=== PATIENT | male | born 1975 | race Caucasian/White ===

== ENCOUNTER 2017-11-17 01:15 | Inpatient (IN) | payer OTHER ==
[~2017-11-17] VITALS: Ht 177.8 cm; Wt 171.5 kg
[~2017-11-17 01:15] MED LIST: ACTIGALL300 MG PO; ALLEGRA ALLERG180 MG PO; AMLODIPINE BESY10 MG PO; ANTI HYPERTENSIVE; CLARITIN10 MG PO; COZAAR 50 MG TA50 M2 PO; FENOFIBRATE PO; FISH OIL 1,001000 M2 PO; FLEXERIL PO; FLONASE 0.05%50 MCG NASAL; HYDROCHLOROTH12.5 M1 PO; HYDROCODON-ACE1 EAC8 PO; HYDROCODONE-APA1 TA1 PO; ICY HOT1 EAC1 TOP; LASIX 40 MG TAB40 M2 PO; LEVAQUIN 500 M500 M2 PO; LISINOPRIL20 MG PO; MELOXICAM15 MG PO; NEURONTIN 300300 M1 PO; NORVASC10 MG PO; PERCOCET 10-321 EACH PO; SYMBICORT160 MCG/4. INH; TRAMADOL 50 MG50 MG PO; TYLENOL325 MG PO; URSODIOL250 MG PO; ZESTORETIC 20-1 EAC3 PO; ZOCOR20 MG PO
[2017-11-17 01:20] VITALS: BP 164/87
[2017-11-17] MEDS ORDERED: CARVEDILOL12.5 MG PO (01:33)
[2017-11-17] MEDS ORDERED: AMITRIPTYLINE H25 M2 PO (01:33)
[2017-11-17] MEDS ORDERED: CLONIDINE0.1 PO (01:34)
[2017-11-17] MEDS ORDERED: CHOLESTYRAMINE P4 GM PO (01:34)
[2017-11-17] MEDS ORDERED: NOVOLOG100 UNIT/1 SUBQ (01:35)
[2017-11-17] MEDS ORDERED: LISINOPRIL-HCT1 EAC1 PO (01:35)
[2017-11-17] MEDS ORDERED: CLARITIN10 MG PO (01:35)
[2017-11-17] MEDS ORDERED: LANTUS SUBQ (01:35)
[2017-11-17] MEDS ORDERED: OXYCODONE HCL 55 MG PO (01:36)
[2017-11-17] MEDS ORDERED: CREON DR 36,001 EACH PO (01:40)
[2017-11-17] MEDS ORDERED: TOPAMAX 100 MG100 MG PO (01:40)
[2017-11-17] MEDS ORDERED: TRAZODONE HCL50 MG PO (01:40)
[2017-11-17 01:51] LABS: HEMATOCRIT 46.2 % (42.0-52.0); HEMOGLOBIN 15.5 gm/dL (14.0-18.0); MCH 30.9 pg (26.0-34.0); MCHC 33.6 g/dL (28.0-37.0); MCV 91.8 fL (80.0-100.0); MPV 7.8 fl. (7.2-11.1); NUCLEATED RBCS 0 /100WBC; PLATELET COUNT* 213 thou/uL (150-400); RBC 5.03 mil/uL (4.50-6.00); RDW-CV 15.1 % (10.5-14.5); WBC 6.2 thou/uL (4.0-11.0)
[2017-11-17 02:20] LABS: ABSOLUTE LYMPHOCYTES 0.4 thou/uL (0.8-5.3); ABSOLUTE MONOCYTES 0.6 thou/uL (0.0-1.2); ABSOLUTE NEUTROPHILS 5.3 thou/uL (1.6-8.1)
[2017-11-17 02:21] LABS: ANISOCYTOSIS Occasional; PLATELET ESTIMATE ADEQUATE
[2017-11-17 02:27] LABS: ANION GAP 14 mmol/L (7-16); BUN 19 mg/dL (7-18); CALCIUM 10.6 mg/dL (8.5-10.1); CHLORIDE 93 mmol/L (98-107); CO2 26 mmol/L (21-32); CREATININE 1.3 mg/dL (0.6-1.3); GLUCOSE 205 mg/dL (70-99); POTASSIUM 3.5 mmol/L (3.5-5.1); SODIUM 133 mmol/L (136-145)
[2017-11-17 02:37] LABS: ALBUMIN 4.1 g/dL (3.4-5.0); ALKALINE PHOSPHATASE 159 U/L (46-116); LIPASE 841 U/L (73-393); NT-PRO BRAIN NAT PEPTIDE 32 pg/mL (<300); SGOT 1093 U/L (15-37); SGPT 1088 U/L (30-65); TOTAL BILIRUBIN 4.7 mg/dL (<0.1-1.0); TOTAL PROTEIN 7.3 g/dL (6.4-8.2); TROPONIN-I LEVEL <0.06 ng/mL (<0.06)
[2017-11-17 04:55] VITALS: BP 153/86
[2017-11-17 05:55] VITALS: BP 143/84
[2017-11-17 09:30] VITALS: BP 143/75
[2017-11-17 16:00] VITALS: BP 140/73
--- NOTE | 2017-11-17 17:06 | EKG ---
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 : 1975 Requested By: Kaity Mccain Order Number: [id number] MD: Carlos Alberto Ward Measurements Intervals [place] Rate: 101 P: 31 MD: 143 QRS: 46 QRSD: 117 T: 13 QT: 354 QTc: 459 Interpretive Statements Sinus tachycardia Probable left atrial enlargement Incomplete right bundle branch block Compared to ECG 06/17/2015 13:43:33 Incomplete right bundle-branch block now present Sinus rhythm no longer present Electronically Signed On 11-17-2017 17:06:36 FIRST MATE by Carlos Alberto Ward [email or web address] <ELECTRONICALLY SIGNED> By: Carlos Alberto Ward MD, [facility] 11/17/17 1706 0121 0121 Carlos Alberto Ward MD, [facility] /EPI
[2017-11-17 20:00] VITALS: BP 146/80
[2017-11-18 05:24] LABS: HEMATOCRIT 42.5 % (42.0-52.0); MCH 30.9 pg (26.0-34.0); MCV 93.7 fL (80.0-100.0); MPV 7.8 fl. (7.2-11.1); RBC 4.53 mil/uL (4.50-6.00); RDW-CV 15.8 % (10.5-14.5); WBC 4.6 thou/uL (4.0-11.0)
[2017-11-18 06:30] LABS: ALBUMIN 3.3 g/dL (3.4-5.0); ALKALINE PHOSPHATASE 277 U/L (46-116); ANION GAP 12 mmol/L (7-16); BUN 18 mg/dL (7-18); CHLORIDE 100 mmol/L (98-107); CHOLESTEROL 290 mg/dL (<200); CO2 25 mmol/L (21-32); CREATININE 1.1 mg/dL (0.6-1.3); GLUCOSE 235 mg/dL (70-99); HDL CHOLESTEROL 9 mg/dL (>40); POTASSIUM 4.4 mmol/L (3.5-5.1); SGOT 998 U/L (15-37); SGPT 1603 U/L (30-65); SODIUM 137 mmol/L (136-145); TC:HDL 32.2 Ratio (Not establshd); TOTAL BILIRUBIN 5.8 mg/dL (<0.1-1.0); TOTAL PROTEIN 5.7 g/dL (6.4-8.2); TRIGLYCERIDE 714 mg/dL (<150); VLDL 143 mg/dL (<40)
[2017-11-18 06:31] LABS: LDL CHOLESTEROL ND mg/dL (<100); SERUM ASSESSMENT Clear
[2017-11-18 09:00] VITALS: BP 138/86
[2017-11-18 15:56] VITALS: BP 111/62
[2017-11-18 16:31] VITALS: BP 111/62
[2017-11-18 16:34] VITALS: BP 111/62
[2017-11-18 17:18] LABS: INR 1.2
[2017-11-18 20:45] VITALS: BP 118/70
[2017-11-19 04:17] VITALS: BP 120/70
[2017-11-19 04:17] LABS: HEMATOCRIT 38.3 % (42.0-52.0); HEMOGLOBIN 12.8 gm/dL (14.0-18.0); MCH 31.2 pg (26.0-34.0); MCHC 33.5 g/dL (28.0-37.0); MCV 93.1 fL (80.0-100.0); MPV 7.9 fl. (7.2-11.1); RBC 4.11 mil/uL (4.50-6.00); WBC 4.3 thou/uL (4.0-11.0)
[2017-11-19 04:48] LABS: ALBUMIN 2.6 g/dL (3.4-5.0); CALCIUM 8.2 mg/dL (8.5-10.1); POTASSIUM 3.9 mmol/L (3.5-5.1); TOTAL BILIRUBIN 1.4 mg/dL (<0.1-1.0); TOTAL PROTEIN 5.9 g/dL (6.4-8.2)
[2017-11-19 08:31] VITALS: BP 129/57
[2017-11-19 15:35] VITALS: BP 117/76
[2017-11-20 00:31] VITALS: BP 119/50
[2017-11-20 06:27] LABS: HEMATOCRIT 37.3 % (42.0-52.0); HEMOGLOBIN 12.2 gm/dL (14.0-18.0); MCH 31.3 pg (26.0-34.0); MCHC 32.7 g/dL (28.0-37.0); MCV 95.5 fL (80.0-100.0); MPV 7.9 fl. (7.2-11.1); RBC 3.91 mil/uL (4.50-6.00); RDW-CV 16.4 % (10.5-14.5); WBC 4.2 thou/uL (4.0-11.0)
[2017-11-20 06:38] LABS: ALBUMIN 2.6 g/dL (3.4-5.0); CALCIUM 7.8 mg/dL (8.5-10.1); CREATININE 0.8 mg/dL (0.6-1.3); POTASSIUM 3.6 mmol/L (3.5-5.1); TOTAL BILIRUBIN 0.8 mg/dL (<0.1-1.0); TOTAL PROTEIN 5.9 g/dL (6.4-8.2)
[2017-11-20 08:30] VITALS: BP 136/64
[2017-11-20 17:05] VITALS: BP 135/80
[2017-11-20 20:00] VITALS: BP 118/61
[2017-11-21 04:53] LABS: ALBUMIN 2.8 g/dL (3.4-5.0); CALCIUM 8.1 mg/dL (8.5-10.1); CREATININE 0.8 mg/dL (0.6-1.3); POTASSIUM 3.6 mmol/L (3.5-5.1); TOTAL BILIRUBIN 0.8 mg/dL (<0.1-1.0); TOTAL PROTEIN 6.3 g/dL (6.4-8.2)
[2017-11-21 08:08] VITALS: BP 152/90
--- NOTE | 2017-11-27 14:50 | CON ---
[address] [address] CONSULTATION Name: STACEYKAVITHA ELGIN Room: [address] IN M.R.#: [id number] Admission: 11/17/17 Attend Phys: Venkatesh Mejia MD Discharge: 11/21/17 Date of : 77 Report #: [id number] THIS REPORT FOR: //name// CC: [facility] physician/PCP Venkatesh Mejia DATE OF SERVICE: 11/17/2017 ADDENDUM This is a 42-year-old male with history of gallbladder disease, status post cholecystectomy in 2016, who also had an endoscopic ultrasound 3 months ago for abdominal pain. He presents with evidence of pancreatitis and his bilirubin is 4.6. His transaminases also are elevated. He denies any gastroesophageal reflux symptoms. He has had endoscopic evaluation 3 years ago back at . He also reports that his last bowel movement was yesterday and denies any hematochezia, melena. We will go ahead and follow up his labs and also order MRCP. We will request EUS report from the outside facility. We will make further recommendation once we review these results. <ELECTRONICALLY SIGNED> By: Alycia Gutierres MD 11/27/17 1450 1641 1705Alycia Gutierres MD /nt
--- NOTE | 2017-11-27 14:50 | CON ---
[address] [address] CONSULTATION Name: STACEYKAIVTHA Room: [address] IN M.R.#: [id number] Admission: 11/17/17 Attend Phys: Venkatesh Mejia MD Discharge: 11/21/17 Date of : 77 Report #: [id number] THIS REPORT FOR: //name// CC: [facility] physician/PCP Venkatesh Mejia DICTATED BY: Mell Cha [facility] DATE OF SERVICE: 11/17/2017 The patient does not have a PCP. Please note at the time of this dictation, the patient was seen and physically examined by myself. REASON FOR CONSULTATION: Chronic pancreatitis. HISTORY OF PRESENT ILLNESS: This is a 42-year-old male who presented to the ER with having 2 days of shortness of breath, abdominal pain and some chest discomfort. The patient is rating his pain as 10/10 most of the time, it is mid epigastric, sharp and radiates out bilaterally around to sides in intensity. He has difficulty carrying on a conversation secondary to the pain. He denies any reflux, GERD or any NSAID use at this time. The patient has been followed by [facility], particularly Dr. Anand who he states he recently saw not very long ago. He has had upper and lower endoscopy studies with them as well as having upper and lower endoscopy studies done at . We will need to obtain his records from and [facility] for further evaluation as to where he is going. 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 ALLERGIES: CONTRAST DYE, IBUPROFEN, SHELLFISH, AND NAPROXEN. MEDICATIONS: From home include amitriptyline, Coreg, cholestyramine, clonidine, NovoLog, Lantus, Claritin, lisinopril with HCTZ, oxycodone, Creon, trazodone, simvastatin, Symbicort, fenofibrate, gabapentin, amlodipine, tramadol, ursodiol, Flonase and Topamax. PAST MEDICAL HISTORY: Hypertension, chronic pancreatitis and hyperlipidemia. PAST SURGICAL HISTORY: Cholecystectomy, back in 2015. FAMILY HISTORY: Negative for any GI or female cancers. SOCIAL HISTORY: Denies any alcohol, tobacco or illegal drug use [place] [address] CONSULTATION Name: KAVITHA IBARRA Room: [address]#: [id number] Admission: 11/17/17 Attend Phys: Venkatesh Mejia MD Discharge: 11/21/17 Date of : 77 Report #: [id number] REVIEW OF SYSTEMS: Twelve-point review of systems is essentially negative except what is mentioned in the HPI. PHYSICAL EXAMINATION: VITAL SIGNS: Temperature 36.6, pulse 96, respirations 24, blood pressure 143/72. HEART: Regular rate and rhythm. LUNGS: Clear. ABDOMEN: Positive bowel sounds, distended, morbidly obese with diffuse tenderness especially in the upper quadrants noted. LABORATORY DATA: White count is 6.2, hemoglobin is 15.5, hematocrit 46.5, platelets is 213. Sodium 133, potassium 3.5, chloride 93, CO2 26, BUN is 19, creatinine 1.3, GFR 61, and glucose is 205. Lipase was 841. CT showed stranding present around the pancreas with mild thickening of the distal stomach and proximal duodenum, diffuse fatty liver. IMPRESSION: 1. Vhlos-eo-jcumrha pancreatitis. 2. Abdominal pain. 3. Nausea and vomiting. 4. Elevated LFTs. 5. History of elevated IgG4 back in 2014. PLAN: 1. Increase fluids to 250. 2. We will check lipids and repeat CMP, CBC in a.m. 3. We will obtain records from and [facility]. 4. Ultrasound to further evaluate his liver and increased LFTs, may need to consider MRCP. 5. Further recommendations to be made once the above have been noted. Thank you for allowing us to participate in this patient's care. Please do not hesitate to call with any questions in regard to this consult. <ELECTRONICALLY SIGNED> By: Alycia Gutierres MD 11/27/17 1450 1255 [id number] Gutierres MD /nt
[2018-07-30] MEDS ORDERED: BASAGLAR K100 UNIT/1 (13:41)
[2018-07-30] MEDS ORDERED: FLEXERIL PO (13:41)
[2018-07-30] MEDS ORDERED: CEFDINIR300 MG PO (13:42)
[2018-07-30] MEDS ORDERED: DEPAKOTE ER500 MG PO (13:43)
[2018-07-30] MEDS ORDERED: PREVALITE PACKET4 GM PO (13:43)
[2018-07-30] MEDS ORDERED: FISH OIL 1,001000 M2 PO (13:43)
[2018-07-30] MEDS ORDERED: IMITREX100 MG PO (13:44)
== END 2017-11-21 16:38 | disposition left against medical advice (07) | DRG 441 ==
LOC: M.ERS 01:15 → M.TBA-ER 02:46 → M.ORTHSURG 02:46
PROVIDERS: Emergency Medicine; Internal Medicine Gastroenterology; Nurse Practitioner Adult Health; ADMIT Internal Medicine
DX: B17.9 Acute viral hepatitis, unspecified (principal); K85.90 Acute pancreatitis without necrosis or infection, unspecified; J96.00 Acute respiratory failure, unspecified whether with hypoxia or hypercapnia; K90.9 Intestinal malabsorption, unspecified; Z68.43 Body mass index [BMI] 50.0-59.9, adult; K86.1 Other chronic pancreatitis; E66.01 Morbid (severe) obesity due to excess calories; E11.65 Type 2 diabetes mellitus with hyperglycemia; R16.2 Hepatomegaly with splenomegaly, not elsewhere classified; K22.70 Barrett's esophagus without dysplasia; K29.00 Acute gastritis without bleeding; K73.9 Chronic hepatitis, unspecified; K76.0 Fatty (change of) liver, not elsewhere classified; Z53.21 Procedure and treatment not carried out due to patient leaving prior to being seen by health care provider; J45.909 Unspecified asthma, uncomplicated; I10 Essential (primary) hypertension; R79.89 Other specified abnormal findings of blood chemistry; R74.0 Nonspecific elevation of levels of transaminase and lactic acid dehydrogenase [LDH]; E78.5 Hyperlipidemia, unspecified; Z91.81 History of falling; Z86.73 Personal history of transient ischemic attack (TIA), and cerebral infarction without residual deficits; Z79.899 Other long term (current) drug therapy; Z79.4 Long term (current) use of insulin; Z90.49 Acquired absence of other specified parts of digestive tract; Z88.8 Allergy status to other drugs, medicaments and biological substances; Z91.013 Allergy to seafood

== ENCOUNTER → 2018-07-30 | Outpatient (CLI) | payer OTHER ==
[~2018-07-30] MED LIST changes: +AMITRIPTYLINE H25 M2 PO; +BASAGLAR K100 UNIT/1; +CARVEDILOL12.5 MG PO; +CEFDINIR300 MG PO; +CHOLESTYRAMINE P4 GM PO; +CLONIDINE0.1 PO; +CREON DR 36,001 EACH PO; +DEPAKOTE ER500 MG PO; +IMITREX100 MG PO; +LANTUS SUBQ; +LISINOPRIL-HCT1 EAC1 PO; +NOVOLOG100 UNIT/1 SUBQ; +OXYCODONE HCL 55 MG PO; +PREVALITE PACKET4 GM PO; +TOPAMAX 100 MG100 MG PO; +TRAZODONE HCL50 MG PO
--- NOTE | ~2018-07-30 | PAINCON ---
[address] [address] PAIN MANAGEMENT CONSULTATION Name: KAVITHA IBARRA Room: [facility] AneeshZahida#: [id number] Admission: 07/30/18 Attend Phys: Kami Cedillo MD Discharge: Date of : 77 Report #: [id number] THIS REPORT FOR: //name// CC: Bailee Cedillo DATE OF SERVICE: 07/30/2018 CHIEF COMPLAINT: Bilateral hip pain. HISTORY: The patient is a 43-year-old gentleman who has been followed in the past because of low back pain. States that his pain has been problematic for a number of years. He is experiencing sharp shooting pains into his hips. States that sometimes this perception of pain caused him to use of his left leg. Pain is worse depends on the time of day it differs. The patient feels that the pain is always there and chronic. Describes it is continuous chronic burning, shooting, cramping, aching, throbbing, sharp, stabbing, tender, transient and it is intermittent. Rates it as a 7/10. He has seen a chiropractor in the past. The patient was seen by pain management associates. The patient states that he lives close to [facility] and would like to have treatment in this area. Notes that his pain has worsened over the last 4-5 years. He has fallen from time to time. ALLERGIES: CONTRAST DYE, IBUPROFEN. MEDICATIONS: Amitriptyline 50 mg daily, Coreg 12.5 mg b.i.d., cholestyramine 4 g daily, clonidine 0.1 mg b.i.d., insulin, Lantus insulin 100 units, Claritin 10 mg, lisinopril/hydrochlorothiazide 20/12.5, oxycodone IR 5 mg q.4-6 hours p.r.n., Creon DR 36,000 unit capsules, trazodone 50 mg at bedtime, Zocor 20 mg, Symbicort 160/4.5 two puffs b.i.d., fenofibrate 134 mg daily, Tramadol 50 mg b.i.d., ursodiol 500 mg p.o. t.i.d., Flonase 0.05% nasal spray 2 sprays daily, Topamax 100 mg. DISCONTINUED MEDICATIONS: Fish oil 1000 mg, Icy Hot, [place] 7.5/325, Tylenol 325. PAST MEDICAL HISTORY: Non-alcoholic chronic pancreatitis, abdominal pain, hyperkalemia, seasonal allergies, CVA 12/2013. The patient states that he has had 4 CVAs, two major and two minor strokes, left-sided weakness, history of falls, low back pain, hypertension, HLD. PAST SURGICAL HISTORY: Cholecystectomy, pancreas issues, left knee surgery. 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 REVIEW OF SYSTEMS: Recent weight change, fatigue, weakness, headaches, double [facility] [address] [place] [address] PAIN MANAGEMENT CONSULTATION Name: IBARRAKAVITHA Room: [facility]#: [id number] Admission: 07/30/18 Attend Phys: Kami Cedillo MD Discharge: Date of : 77 Report #: [id number] vision/blurred vision, earaches, chronic sinus problems, nosebleeds, mouth, sore throat, swollen glands, shortness of breath lying flat, swelling of feet, ankles, hands. Chronic frequent coughs spitting up blood, shortness of breath, wheezing, change in bowel movements, nausea, frequent diarrhea, painful bowel movement, rectal bleeding, kidney stones, joint pain, joint stiffness, weakness, muscle pain, cramping, back pain, frequent recurrent headaches, numbness and tingling, stroke, memory loss, confusion, insomnia, slow to heal cutting, bruising tendency. LABORATORY DATA: No new laboratory values are available at the time of our interview. PAIN CLINIC ASSESSMENT/PQRS: 1. History of osteoarthritis. The patient complains of some arthritic pain in his low back area. 2. The patient has not been treated for rheumatoid arthritis. 3. Height 5 feet 10 inches, weight 370 pounds, BMI is 53.3. 4. Vital signs: Blood pressure 148/101, heart rate 77, respiratory rate 16, room air saturation 96%. Temperature 98.5. Pain intensity 7/10. 5. Fall risk. The patient states he has fallen on numerous occasions. 6. Blood thinner. The patient is not on a blood thinning medication. 7. Hypertension. The patient is being treated for hypertension. 8. Opioid greater than 6 weeks. The patient does receive opioid medications. 9. Risk assessment tool. 10. Functional assessment tool 70/70 for pain impact score. 11. Recreational drug use. The patient denies use of recreational drugs. 12. Tobacco: The patient denies use of tobacco. 13. Alcohol: The patient denies frequent use of alcoholic beverages. PHYSICAL EXAMINATION: GENERAL: The patient is an obese white male, appears his stated age. He is alert and oriented x 3. Affect is appropriate. Speech is fluent. HEENT: Normocephalic, atraumatic. Extraocular eye muscles intact. Sclerae nonicteric. Mucous membranes moist. NECK: Without JVD or bruits. HEART: Distant. LUNGS: Clear to auscultation without rhonchi or rales, difficult to appreciate secondary to the patient's body habitus. ABDOMEN: Protuberant. Bowel sounds present. EXTREMITIES: Upper extremity muscle strength is judged to be 5/5 for the major muscle groups in the upper extremity. Deep tendon reflexes are trace in the biceps. Lower extremity muscle strength is judged to be 5/5 for the major muscle groups in the lower extremity. The patient complains of some pain and discomfort in the L5/S1 area, left and right. He has some pain and discomfort with pins and needle sensation in the posterior portion of his back with some pain and discomfort with stabbing and burning [place] [address] PAIN MANAGEMENT CONSULTATION Name: KAVITHA IBARRA Room: [facility]#: [id number] Admission: 07/30/18 Attend Phys: Kami Cedillo MD Discharge: Date of : 77 Report #: [id number] portion of his left leg. IMAGING STUDIES: MRI lumbar spine dated 07/09/2018. INDICATION: 1. Low back pain, numbness and left leg. L1-L2, no disk bulge, no facet arthropathy. No significant spinal stenosis or neural foraminal narrowing. 2. L2-L3 disk bulge. No facet arthropathy. No significant spinal stenosis or neural foraminal narrowing. 3. L3-L4 disk bulge, right paramedian. Mild facet arthropathy. Mild spinal stenosis. Moderate right lateral recess narrowing. Mild bilateral neural foraminal narrowing. 4. L4-L5 disk bulge, mild facet arthropathy. No significant spinal stenosis. Moderate left lateral recess and mild neural foraminal narrowing. 5. L5-S1 disk bulge, moderate left greater than right facet arthropathy. No significant spinal stenosis. Mild right lateral recess neural foraminal narrowing. IMPRESSION: 1. Bilateral hip pain, chronic left leg pain. 2. Type 2 diabetes with neurologic manifestation. 3. Chronic low back pain. 4. Chronic pancreatitis. 5. History of lumbar radiculopathy. 6. History of transient ischemic attacks. The patient states that he has had four attacks, two major and two minor. 7. History of migraines. 8. Hypertriglyceridemia. 9. History of acute renal failure. 10. Irritable bowel syndrome. 11. Obstructive sleep apnea. 12. Nonalcoholic fatty liver. 13. Subacute pancreatitis. RECOMMENDATIONS: We discussed the patient's treatment. States that he would like to receive medications at our facility given that it is closer to his house. He has undergone a number of treatments in the past, which include chiropractic treatment, physical therapy. Use of topical creams, undergone injections many of these which have not been affected. He feels that the use of gabapentin and oxycodone are helpful. He would like to continue with these medications to help palliate his pain and discomfort. We have discussed the problems with opioid medications with the patient. He is aware that 72,000 people last year with overdose. He is aware that 500,000 people have since 1999 secondary to opioid use. We explained to the patient that we could possibly provide him with a reasonable amount of pain medications [place] [address] PAIN MANAGEMENT CONSULTATION Name: STACEYKAVITHA Room: [facility] GRACIELA Burdick#: [id number] Admission: 07/30/18 Attend Phys: Kami Cedillo MD Discharge: Date of : 77 Report #: [id number] is within the guidelines of the CDC. He will follow up in the future, at which time we will consider appropriate treatment. By: [id number] [id number]. Delio Cedillo MD /PMT
== END ==
LOC: M.PC 05:10
DX: M54.16 Radiculopathy, lumbar region (principal); M25.551 Pain in right hip; M25.552 Pain in left hip; E11.40 Type 2 diabetes mellitus with diabetic neuropathy, unspecified; K86.1 Other chronic pancreatitis; G43.909 Migraine, unspecified, not intractable, without status migrainosus; G45.9 Transient cerebral ischemic attack, unspecified; E78.1 Pure hyperglyceridemia; G47.33 Obstructive sleep apnea (adult) (pediatric); K76.0 Fatty (change of) liver, not elsewhere classified; K58.9 Irritable bowel syndrome, unspecified; Z87.448 Personal history of other diseases of urinary system; Z79.899 Other long term (current) drug therapy

== ENCOUNTER 2019-03-16 16:40 | Inpatient (IN) | payer OTHER ==
[~2019-03-16] VITALS: Ht 177.8 cm; Wt 143.3 kg
--- NOTE | ~2019-03-16 | OP ---
[address] [address] OPERATIVE REPORT Name: IBARRAKAVITHA Room: [address] IN M.R.#: [id number] Admission: 03/16/19 Attend Phys: Venkatesh Mejia MD Discharge: Date of : 77 Report #: [id number] THIS REPORT FOR: //name// CC: Venkatesh Biswastings DATE OF SERVICE: 03/17/2019 PREOPERATIVE DIAGNOSIS: Right ureteral stone with ureteral obstruction and renal insufficiency. POSTOPERATIVE DIAGNOSIS: Right ureteral stone with ureteral obstruction and renal insufficiency. PROCEDURE PERFORMED: Cystoscopy with right retrograde pyelogram and ureteroscopy. SURGEON: Venkatesh Berkowitz MD ANESTHESIA: General. ESTIMATED BLOOD LOSS: Minimal. COMPLICATIONS: None. INDICATION FOR PROCEDURE: This is a 43-year-old gentleman who presented acutely with right flank pain. He underwent a CT scan and was found to have 2-3 small stones in the right distal ureter with hydronephrosis and some renal insufficiency with a creatinine of 2.0. His options for management have been discussed in detail and he has elected to proceed with cystoscopy, right retrograde pyelogram, ureteroscopy, laser lithotripsy and stent placement. The risks, benefits, and possible complications were explained in detail in the preoperative area. He has a chance to ask questions, which were answered to his satisfaction. He elects to proceed. DESCRIPTION OF PROCEDURE: After obtaining informed consent, the patient was taken to the operating room and placed in supine position. After adequate general anesthesia and IV antibiotics, he was prepped and draped in dorsal lithotomy position. A 21-Faroese cystoscope with 30-degree lens was introduced into the anterior urethra, was normal caliber all the way down the prostatic urethra, which was normal. Upon entering the bladder, bladder was systematically inspected. There were several small crystals and blood clots in the base of the bladder. These were flushed out. The right ureteral orifice was identified, it was mildly erythematous. There was no evidence of any tumors or diverticula within the bladder. A retrograde pyelogram was performed. There was a normal caliber ureter, although it was difficult [place] [address] OPERATIVE REPORT Name: KAVITHA IBARRA Room: [address] IN [facility].#: [id number] Admission: 03/16/19 Attend Phys: Venkatesh Mejia MD Discharge: Date of : 77 Report #: [id number] patient's large body habitus, so a sensor wire was passed in retrograde fashion into the renal pelvis under fluoroscopic guidance. Rigid ureteroscopy was carried out alongside the wire into the mid ureter. The ureter was mildly erythematous along the distal centimeter otherwise there was no evidence of any stones or abnormalities. A retrograde pyelogram was performed through the ureteroscope into the renal collecting system, which did not reveal any hydronephrosis or filling defects. After removal of the ureteroscope, there were several small blood clots which effluxed from around the wire. Otherwise, no abnormalities were found. The wire was removed and the contrast effluxed through the ureter without any evidence of obstruction. The collecting system was also monitored under fluoroscopy and it did appear that all the contrast was passing through the ureter easily. It was determined that a stent would not be placed, the bladder was drained. Uro-Jet was applied per urethra and a B and O suppository was placed per rectum. The patient was extubated and taken to recovery room in good condition. Plan is to discharge home when stable and okay with the primary service. He can follow up with me in 3-4 weeks or as needed sooner. By: 1527 1628Venkatesh Berkowitz MD /ray
[2019-03-16 16:47] VITALS: BP 136/78
[2019-03-16] MEDS ORDERED: BOTOX100 UNIT IM (16:51)
[2019-03-16 17:05] LABS: URINE BILIRUBIN NEGATIVE (Negative); URINE BLOOD 1+ (Negative); URINE CLARITY CLEAR; URINE COLOR YELLOW; URINE GLUCOSE-RANDOM 2+ (Negative); URINE KETONES NEGATIVE (Negative); URINE LEUKOCYTES-REFLEX NEGATIVE (Negative); URINE NITRITE-REFLEX NEGATIVE (Negative); URINE PROTEIN NEGATIVE (Negative); URINE SPECIFIC GRAVITY 1.015 (1.005-1.030); URINE UROBILINOGEN 0.2 E.U./dl (0.2-1.0)
[2019-03-16 17:17] LABS: ABSOLUTE EOSINOPHILS 0.1 thou/uL (0.0-0.7); ABSOLUTE LYMPHOCYTES 0.7 thou/uL (0.8-5.3); ABSOLUTE MONOCYTES 0.6 thou/uL (0.0-1.2); ABSOLUTE NEUTROPHILS 5.4 thou/uL (1.6-8.1); BASOPHILS 0.5 %; HEMOGLOBIN 13.8 gm/dL (14.0-18.0); LYMPHOCYTES 10.6 %; MCH 29.7 pg (26.0-34.0); MCHC 32.9 g/dL (28.0-37.0); MCV 90.5 fL (80.0-100.0); MONOCYTES 8.4 %; MPV 7.8 fl. (7.2-11.1); NUCLEATED RBCS 0 /100WBC; PLATELET COUNT* 199 thou/uL (150-400); POLYS 78.5 %; RBC 4.64 mil/uL (4.50-6.00); RDW-CV 14.1 % (10.5-14.5); WBC 6.9 thou/uL (4.0-11.0)
[2019-03-16 17:28] LABS: CRYSTALS None Seen /LPF (None Seen); MUCUS None Seen strn/LPF (None Seen); SQUAMOUS 0-3 Few /LPF (0-3); URINE RBC 0-2 Rare /HPF (0-2)
[2019-03-16 17:29] LABS: BACTERIA-REFLEX None Seen /HPF (None Seen); CASTS None Seen /LPF (None Seen); URINE WBC-REFLEX 0-5 Rare /HPF (0-5)
[2019-03-16 17:29] LABS: CALCIUM 8.9 mg/dL (8.5-10.1)
[2019-03-16 17:34] LABS: ALBUMIN 3.6 g/dL (3.4-5.0); TOTAL BILIRUBIN 0.6 mg/dL (<0.1-1.0); TOTAL PROTEIN 6.2 g/dL (6.4-8.2)
[2019-03-16 19:34] VITALS: BP 124/69
[2019-03-16 20:00] VITALS: BP 127/72
[2019-03-17 07:50] VITALS: BP 113/70
[2019-03-17 08:18] LABS: HEMATOCRIT 41.8 % (42.0-52.0); HEMOGLOBIN 13.9 gm/dL (14.0-18.0); MCH 30.2 pg (26.0-34.0); MCHC 33.1 g/dL (28.0-37.0); MCV 91.2 fL (80.0-100.0); MPV 7.9 fl. (7.2-11.1); RBC 4.58 mil/uL (4.50-6.00); RDW-CV 14.6 % (10.5-14.5); WBC 4.6 thou/uL (4.0-11.0)
[2019-03-17 08:35] LABS: CALCIUM 8.9 mg/dL (8.5-10.1); CREATININE 1.3 mg/dL (0.6-1.3); POTASSIUM 4.6 mmol/L (3.5-5.1)
[2019-03-17] MEDS ORDERED: ASPIRIN81 M2 PO (11:00)
[2019-03-17 13:57] VITALS: BP 113/70
[2019-03-17 14:04] VITALS: BP 104/69
[2019-03-17 19:55] VITALS: BP 127/63
[2019-03-17 20:44] VITALS: BP 109/58
[2019-03-18] VITALS: BP 99/58
[2019-03-18 03:00] VITALS: BP 95/56
[2019-03-18 04:17] LABS: ABSOLUTE EOSINOPHILS 0.1 thou/uL (0.0-0.7); ABSOLUTE MONOCYTES 0.3 thou/uL (0.0-1.2); ABSOLUTE NEUTROPHILS 2.4 thou/uL (1.6-8.1); BASOPHILS 0.9 %; EOSINOPHILS 3.4 %; HEMATOCRIT 36.2 % (42.0-52.0); LYMPHOCYTES 26.6 %; MCH 29.8 pg (26.0-34.0); MCHC 32.5 g/dL (28.0-37.0); MCV 91.6 fL (80.0-100.0); MONOCYTES 7.4 %; MPV 8.2 fl. (7.2-11.1); NUCLEATED RBCS 0 /100WBC; PLATELET COUNT* 166 thou/uL (150-400); POLYS 61.7 %; RBC 3.96 mil/uL (4.50-6.00); RDW-CV 13.9 % (10.5-14.5); WBC 3.9 thou/uL (4.0-11.0)
[2019-03-18 04:30] LABS: CALCIUM 8.5 mg/dL (8.5-10.1); CREATININE 1.1 mg/dL (0.6-1.3); MAGNESIUM 2.1 mg/dL (1.8-2.4); POTASSIUM 4.2 mmol/L (3.5-5.1)
[2019-03-18 04:36] LABS: HEMOGLOBIN 11.8 gm/dL (14.0-18.0)
[2019-03-18 07:30] VITALS: BP 119/68
--- NOTE | 2019-03-18 13:46 | EKG ---
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 : 1975 Requested By: Mynor Sheridan Order Number: [id number] Reading MD: Carlos Alberto Ward Measurements Intervals [place] Rate: 77 P: 44 AL: 138 QRS: 38 QRSD: 113 T: 14 QT: 378 QTc: 428 Interpretive Statements Sinus rhythm Incomplete right bundle branch block Low voltage, precordial leads Compared to ECG 11/17/2017 01:21:18 Low QRS voltage now present Sinus tachycardia no longer present Electronically Signed On 03-18-2019 13:45:52 CDT by Carlos Alberto Ward [email or web address] <ELECTRONICALLY SIGNED> By: Carlos Alberto Ward MD, [facility] 03/18/19 1345 1653 1653 Carlos Alberto Ward MD, [facility] /EPI
[2019-03-18 16:00] VITALS: BP 100/62; BP 137/110
[2019-03-18 19:55] VITALS: BP 127/63
[2019-03-19 07:55] VITALS: BP 119/77
[2019-03-19] MEDS ORDERED: FLOMAX0.4 MG PO (09:59)
[2019-03-19] MEDS ORDERED: CEFDINIR300 MG PO (10:00)
[2019-03-19] MEDS ORDERED: NORCO 5-325 TA1 EAC1 PO (10:00)
[2019-03-19 11:15] VITALS: BP 119/77
[2019-03-24 15:05] LABS: STONE CA OXALATE DIHYDRATE 25 % (()); STONE CA OXALATE MONOHYDRATE 65 % (()); STONE CALCIUM PHOSPHATE 10 % (()); STONE COLOR Tan (())
== END 2019-03-19 12:34 | disposition home or self-care (01) | DRG 694 ==
LOC: M.ERS 16:40 → M.TBA-ER 18:14 → M.ORTHSURG 18:14
PROVIDERS: Nurse Practitioner Adult Health; Nurse Practitioner Family; Physician Assistant; Urology; ADMIT Internal Medicine
PROC: BT1D1ZZ Fluoroscopy of Right Kidney, Ureter and Bladder using Low Osmolar Contrast (ICD-10-PCS; principal; 2019-03-17)
DX: N13.2 Hydronephrosis with renal and ureteral calculous obstruction (principal); K86.1 Other chronic pancreatitis; Z68.42 Body mass index [BMI] 45.0-49.9, adult; N17.9 Acute kidney failure, unspecified; E78.5 Hyperlipidemia, unspecified; K59.00 Constipation, unspecified; E66.9 Obesity, unspecified; G89.29 Other chronic pain; M54.9 Dorsalgia, unspecified; E11.65 Type 2 diabetes mellitus with hyperglycemia; G47.33 Obstructive sleep apnea (adult) (pediatric); J45.909 Unspecified asthma, uncomplicated; I12.9 Hypertensive chronic kidney disease with stage 1 through stage 4 chronic kidney disease, or unspecified chronic kidney disease; R31.0 Gross hematuria; E11.22 Type 2 diabetes mellitus with diabetic chronic kidney disease; G43.909 Migraine, unspecified, not intractable, without status migrainosus; E78.1 Pure hyperglyceridemia; N18.2 Chronic kidney disease, stage 2 (mild); E11.649 Type 2 diabetes mellitus with hypoglycemia without coma; Z79.82 Long term (current) use of aspirin; Z86.73 Personal history of transient ischemic attack (TIA), and cerebral infarction without residual deficits; Z88.8 Allergy status to other drugs, medicaments and biological substances; Z91.041 Radiographic dye allergy status; Z91.013 Allergy to seafood; Z83.3 Family history of diabetes mellitus; Z82.3 Family history of stroke; Z82.49 Family history of ischemic heart disease and other diseases of the circulatory system; Z79.4 Long term (current) use of insulin; Z79.899 Other long term (current) drug therapy